=== PATIENT | female | born 1965 | race Caucasian/White ===

== ENCOUNTER → 2023-12-16 09:47 | Outpatient (REF) | payer BC, SELFPAY ==
[2023-12-16 12:19] LABS: % Immature Granulocytes 0.5 % (0-0.5); % Lymphocytes 22.7 % (20.5-51.1); % Monocytes 7.7 % (1.7-9.3); % Neutrophils 67.1 % (42.2-75.2); Absolute Lymphocytes 0.9 10^3/uL (1.2-3.4); Absolute Monocytes 0.3 10^3/uL (0.1-0.6); Absolute Neutrophils 2.8 10^3/uL (1.4-6.5); Hematocrit 41.7 % (37.0-47.0); Hemoglobin 14.4 g/dL (12.0-16.0); Mean Corp Hgb Conc. 34.5 g/dL (33.0-37.0); Mean Corpuscular Hgb 33.1 pg (27.0-31.0); Mean Corpuscular Volume 95.9 fL (81.0-99.0); Mean Platelet Volume 10.1 fL (7.4-10.4); Nucleated Red Blood Cells % 0 %; Platelet Count 243 10^3/uL (130-400); Red Blood Cell Count 4.35 10^6/uL (4.20-5.40); Red Cell Dist. Width 14.3 % (11.5-14.5); White Blood Cell Count 4.2 10^3/uL (4.8-10.8)
[2023-12-16 12:34] LABS: Erythrocyte Sed Rate 10 mm/hour (0-20)
[2023-12-16 13:28] LABS: Vitamin D, 25-OH*** 26.2 ng/mL (30-80)
[2023-12-16 13:33] LABS: ALT (SGPT) 23 U/L (0-35); AST (SGOT) 30 U/L (14-36); Albumin 4.5 g/dl (3.5-5.0); Alkaline Phosphatase 77 U/L (38-126); Blood Urea Nitrogen 4 mg/dl (7-17); Calcium 9.7 mg/dl (8.4-10.2); Carbon Dioxide 22 mmol/L (22-30); Chloride 106 mmol/L (98-107); Glucose 119 mg/dl (70-99); HDL Cholesterol 107 mg/dl; LDL Cholesterol, Calculated 86 mg/dl; Sodium 141 mmol/L (135-145); Total Bilirubin 0.5 mg/dl (0.2-1.3); Total Cholesterol 209 mg/dl (50-199); Triglyceride 81 mg/dl (10-149); Very Low Density Lipoprotein 16 mg/dl (0-30); eGFR > 60.00
[2023-12-16 13:42] LABS: TSH 1.63 uIU/ml (0.47-4.68)
[2023-12-16 14:35] LABS: IgA 244 mg/dl (70-400)
[2023-12-16 15:48] LABS: Vitamin B12 241 pg/ml (239-931)
[2023-12-18 15:46] LABS: tTG IgA Antibody 9.8 EU/ml (0-19); tTG IgG Antibody 10.1 EU/ml (0-19)
[2023-12-18 18:49] LABS: Endomysial IgA Antibody Titer <1:10 (<1:10)
== END ==
LOC: HWLAB 09:47
PROVIDERS: ATTENDING PHYSICIAN Internal Medicine
DX: R19.7 Diarrhea, unspecified (principal); E78.00 Pure hypercholesterolemia, unspecified; E03.9 Hypothyroidism, unspecified; E55.9 Vitamin D deficiency, unspecified; E53.8 Deficiency of other specified B group vitamins
CPT/HCPCS: 36415; 80053; 80061; 82306; 82607; 82784; 83516; 84443; 85025; 85652; 86231

== ENCOUNTER 2024-11-05 10:50 | Emergency (ER) | payer BC, SELFPAY ==
[2024-11-05 10:58] VITALS: BP 115/77
--- NOTE | 2024-11-05 12:14 | ED.GENMED ---
History of Present Illness
General
Chief Complaint: Fall
Time Seen by Provider: 11/05/24 11:40
History of Present Illness
History of Present Illness:
59-year-old female presents to the emergency department for evaluation of right shoulder injury, she lost her balance and fell attempting to brace her fall with the right arm. She denies head strike. Having intense pain and spasms to the right
shoulder. Denies distal paresthesias. Does not take anticoagulants.
Past History
Past History
ED Past Medical History: None
ED Past Surgical History: None
Social History
Tobacco: Smoker
Review of Systems
Review of Systems
Allergies reviewed?: Yes
All Other Systems: ROS reviewed and negative except as documented in HPI and ROS
Phy Exam
Physical Exam
Physical Exam:
GEN: Well appearing, NAD, WDWN
HEENT: Oral mucosa moist, no scleral icterus
Cardiac: Regular rate
Lung: No respiratory distress, no tachypnea
MSK: Significant swelling with no palpable deformity of the right shoulder, axillary neuro sensation intact, right hand range of motion intact, radial pulse is strong on the right
Skin: Good color, no pallor or jaundice, no rashes
Neuro: AO x3, moves all extremities freely
Psych: Calm, cooperative
Course
Orders/Labs/Results
Orders:
Orders
11/05/24 10:59
Shoulder, Right, Trauma [CR Shoulder, Trauma - Right] Urgent
Comment:
Reason For Exam: fall
11/05/24 12:13
HYDROmorphone [Dilaudid] 0.5 mg IM NOW STA
Vital Signs
Initial and Last Documented VS:
Initial Vital Signs
Temp Pulse Resp BP Pulse Ox
97.8 F 74 22 115/77 97
11/05/24 10:58 11/05/24 10:58 11/05/24 10:58 11/05/24 10:58 11/05/24 10:58
Last Documented Vital Signs
Temp Pulse Resp BP Pulse Ox
97.8 F 74 22 115/77 97
11/05/24 10:58 11/05/24 10:58 11/05/24 10:58 11/05/24 10:58 11/05/24 12:14
MDM/Problems Addressed
MDM/Problems Addressed:
Comminuted humeral head fracture identified. Patient request follow-up with Dr. Chambers to [facility]. Will place in shoulder immobilizer and prescribe opiates for pain
*Pulse Oximetry
SaO2: 97
Oxygen Mode of Delivery: Room air
Patient hypoxic: no
*Critical Care Note
Total Time (30-74mins, 75-104mins- exclusive of procedures): Not Applicable
ED Attending Note
-
Portions of this chart may have been created with voice recognition software.� Occasional wrong word or��sound alike� substitutions may have occurred due to the inherent limitations of voice recognition software.
Discharge Plan
Departure
Patient Disposition: Home (Routine Discharge)
Date of Disposition: 11/05/24
Time of Disposition: 12:40
Patient with high blood pressure during this ER visit?: No
Discharge Problem:
Fracture of head of right humerus
Instructions: Upper Arm Fracture ED
Prescriptions:
New
oxycodone 5 mg tablet
5 mg PO Q8H PRN (Reason: Pain) Qty: 10 0RF
cyclobenzaprine 10 mg tablet
10 mg PO TID PRN (Reason: muscle spasm) Qty: 10 0RF
No Action
multivitamin Tablet
1 tab PO DAILY
varenicline tartrate [Chantix] 1 mg Tablet
1 mg PO BID
Fish Oil 1,600-500-800 mg/5 mL Liquid
5 ml PO DAILY
oxycodone 5 mg Tablet
5 mg PO Q4H PRN (Reason: pain)
Referrals:
Bong Chambers MD [Active, Orthopedics]
Interventions
Interventions:
*Risk Screen - Suicide Last Done: 11/05/24 10:58
*General Assessment Last Done: 11/05/24 10:58
*Neglect/Abuse Screening Last Done: 11/05/24 10:58
*ED- Fall Risk Assessment Last Done: 11/05/24 12:20
*ED COVID-19 Vaccine History Last Done: 11/05/24 12:20
*Nursing Disposition Last Done: 11/05/24 13:09
ED-Musculoskeletal Assessment Last Done: 11/05/24 12:35
ED- Neurological Assessment Last Done: 11/05/24 12:35
ED-Skin Assessment Last Done: 11/05/24 12:35
Discharge Date and Time
Discharge Date/Time: 11/05/24 13:09
Print Language: CZECH
[2024-11-05] MEDS: DILAUDID 0.5 MG IM (12:18)
[2024-11-05 12:20] VITALS: BMI 18.6
== END 2024-11-05 13:09 | disposition home or self-care (01) ==
LOC: EMR 10:50
PROVIDERS: EMERGENCY PHYSICIAN Emergency Medicine; FAMILY PHYSICIAN Internal Medicine
DX: S42.291A Other displaced fracture of upper end of right humerus, initial encounter for closed fracture (principal); W19.XXXA Unspecified fall, initial encounter; F17.200 Nicotine dependence, unspecified, uncomplicated
CPT/HCPCS: 99283; 29105; 73030

== ENCOUNTER → 2024-11-11 08:42 | Outpatient (REF) | payer BC, SELFPAY | LOC: HWRAD 08:42 | PROVIDERS: ATTENDING PHYSICIAN Orthopaedic Surgery Hand Surgery; FAMILY PHYSICIAN Internal Medicine | DX: S42.291A Other displaced fracture of upper end of right humerus, initial encounter for closed fracture (principal) | CPT/HCPCS: 73200 ==

== ENCOUNTER 2024-11-20 06:08 | Day surgery (SDC) | payer BC, SELFPAY ==
[2024-11-17 13:53] VITALS: BMI 19.7
[2024-11-17 14:20] LABS: Hematocrit 34.3 % (37.0-47.0); Hemoglobin 11.4 g/dL (12.0-16.0); Mean Corp Hgb Conc. 33.2 g/dL (33.0-37.0); Mean Corpuscular Volume 97.2 fL (81.0-99.0); Platelet Count 312 10^3/uL (130-400); Red Cell Dist. Width 13.3 % (11.5-14.5)
[2024-11-17 14:35] LABS: ALT (SGPT) 18 U/L (0-35); AST (SGOT) 19 U/L (14-36); Albumin 4.2 g/dl (3.5-5.0); Alkaline Phosphatase 58 U/L (38-126); Blood Urea Nitrogen 6 mg/dl (7-17); Calcium 9.3 mg/dl (8.4-10.2); Carbon Dioxide 27 mmol/L (22-30); Chloride 107 mmol/L (98-107); Estimated Creatinine Clearance 84 ml/min; Glucose 95 mg/dl (70-99); Potassium 4.0 mmol/L (3.5-5.1); Sodium 138 mmol/L (135-145); Total Protein 6.7 g/dl (6.3-8.2); eGFR > 60.00
[2024-11-17 15:32] VITALS: BMI 19.7
[2024-11-18 06:41] LABS: Glycohemoglobin (HgbA1c) 5.1 % (4.0-5.6)
[2024-11-20] VITALS (7 sets, daily range): BP systolic 91–111; BP diastolic 67–76; BMI 19.7
[2024-11-20] MEDS: CELEBREX 200 MG PO (13:10)
[2024-11-20] MEDS: NORMOSOL-R/PLASMALYTE-A 1000 IV (13:10)
--- NOTE | 2024-11-20 13:11 | W.DS.TRANS ---
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
-
Discharge Instructions:
Sleep Apnea Risk Low
Discharge Diagnosis/Procedures R Reverse TSA Dr Chambers 11/20/24
Diet As tolerated
Activity No strenuous activity
Driving Restrictions No driving
Instructions:
Stand-Alone Forms: SDS Total Shoulder D/C Inst.
Changes to Home Medications: Yes
Discharge Medications:
DC Medications w/original date entered in [facility]
multivitamin 1 tab PO DAILY 04/06/22
Held on 11/20/24. Instructions: Resume on 11/28/24.
omega 3-dce-bpz-fish oil 1,600 mg-500 mg-800 mg/5 mL oral liquid (Fish Oil) 5 ml PO DAILY 04/06/22
Held on 11/20/24. Instructions: Resume on 11/28/24.
bupropion HCl 100 mg tablet 150 mg PO DAILY 11/17/24
cholecalciferol (vitamin D3) 50 mcg (2,000 unit) tablet (Vitamin D3) 50 mcg PO DAILY 11/17/24
nicotine 14 mg/24 hr daily transdermal patch 1 patch transdermal Q24H 11/17/24
Saccharomyces boulardii 250 mg capsule (Florastor) 250 mg PO BID #1 cap 11/20/24
Tylenol Extra Strength 1,000 mg PO QID ##0 11/20/24
aspirin 325 mg tablet 325 mg PO DAILY blood clot prevention #1 tab 11/20/24
celecoxib 200 mg capsule 200 mg PO DAILY Anti-inflammatory #14 caps 11/20/24
dexamethasone 4 mg tablet 4 mg PO BID inflammation #6 tabs 11/20/24
docusate sodium 100 mg capsule (Colace) 100 mg PO BID stool softner #1 cap 11/20/24
doxycycline hyclate 100 mg capsule 100 mg PO BID infection prevention #10 caps 11/20/24
famotidine 20 mg tablet 20 mg PO HS GI prophylaxis #30 tabs 11/20/24
gabapentin 300 mg capsule 300 mg PO HS sleep/pain #10 caps 11/20/24
hydrocodone 5 mg-acetaminophen 325 mg tablet 1 tab PO Q6H moderate-severe pain #0 tabs 11/20/24
magnesium hydroxide 400 mg/5 mL oral suspension (Milk of Magnesia) 30 ml PO HS PRN constipation #1 mL 11/20/24
ondansetron 4 mg disintegrating tablet 4 mg PO Q6H PRN n/v #20 tabs 11/20/24
sennosides 8.6 mg tablet (Senokot) 17.2 mg (2 x 8.6 mg) PO BID laxative #2 tabs 11/20/24
Home Medication Changes
Saccharomyces boulardii 250 mg capsule (Florastor) 250 mg PO BID #1 cap 11/20/24
Tylenol Extra Strength 1,000 mg PO QID ##0 11/20/24
aspirin 325 mg tablet 325 mg PO DAILY blood clot prevention #1 tab 11/20/24
celecoxib 200 mg capsule 200 mg PO DAILY Anti-inflammatory #14 caps 11/20/24
dexamethasone 4 mg tablet 4 mg PO BID inflammation #6 tabs 11/20/24
docusate sodium 100 mg capsule (Colace) 100 mg PO BID stool softner #1 cap 11/20/24
doxycycline hyclate 100 mg capsule 100 mg PO BID infection prevention #10 caps 11/20/24
famotidine 20 mg tablet 20 mg PO HS GI prophylaxis #30 tabs 11/20/24
gabapentin 300 mg capsule 300 mg PO HS sleep/pain #10 caps 11/20/24
hydrocodone 5 mg-acetaminophen 325 mg tablet 1 tab PO Q6H moderate-severe pain #0 tabs 11/20/24
magnesium hydroxide 400 mg/5 mL oral suspension (Milk of Magnesia) 30 ml PO HS PRN constipation #1 mL 11/20/24
ondansetron 4 mg disintegrating tablet 4 mg PO Q6H PRN n/v #20 tabs 11/20/24
sennosides 8.6 mg tablet (Senokot) 17.2 mg (2 x 8.6 mg) PO BID laxative #2 tabs 11/20/24
Pending Results: No
[2024-11-20] MEDS: ANCEF 5 IV (17:49)
== END 2024-11-20 18:00 | disposition home or self-care (01) ==
LOC: SDS 06:08
PROVIDERS: ATTENDING PHYSICIAN Orthopaedic Surgery Hand Surgery; FAMILY PHYSICIAN Internal Medicine
DX: S42.291A Other displaced fracture of upper end of right humerus, initial encounter for closed fracture (principal); W19.XXXA Unspecified fall, initial encounter
CPT/HCPCS: 23472; C1776; 36415; 73020; 80053; 83036; 85027; 86850; 86900; 86901; 87070; 93005

== ENCOUNTER 2024-12-28 12:10 | Outpatient (RCR) | payer BC, SELFPAY | END 2024-12-28 23:59 | disposition home or self-care (01) | LOC: RPT 12:10 | PROVIDERS: ATTENDING PHYSICIAN Orthopaedic Surgery Orthopaedic Trauma; FAMILY PHYSICIAN Internal Medicine | DX: Z47.1 Aftercare following joint replacement surgery (principal); S42.291D Other displaced fracture of upper end of right humerus, subsequent encounter for fracture with routine healing; Z73.6 Limitation of activities due to disability; M62.81 Muscle weakness (generalized); W18.09XD Striking against other object with subsequent fall, subsequent encounter; Z96.611 Presence of right artificial shoulder joint | CPT/HCPCS: 97110; 97162 ==

== ENCOUNTER 2025-01-27 08:05 | Outpatient (RCR) | payer BC, SELFPAY | END 2025-01-27 23:59 | disposition home or self-care (01) | LOC: RPT 08:05 | PROVIDERS: ATTENDING PHYSICIAN Orthopaedic Surgery Orthopaedic Trauma; FAMILY PHYSICIAN Internal Medicine | DX: Z47.1 Aftercare following joint replacement surgery (principal); S42.291D Other displaced fracture of upper end of right humerus, subsequent encounter for fracture with routine healing; Z73.6 Limitation of activities due to disability; M62.81 Muscle weakness (generalized); W18.09XD Striking against other object with subsequent fall, subsequent encounter; Z96.611 Presence of right artificial shoulder joint | CPT/HCPCS: 97010; 97110; 97112; 97140; 97530 ==

== ENCOUNTER 2025-02-22 09:28 | Outpatient (RCR) | payer BC, SELFPAY | END 2025-02-22 23:59 | disposition home or self-care (01) | LOC: RPT 09:28 | PROVIDERS: ATTENDING PHYSICIAN Orthopaedic Surgery Orthopaedic Trauma; FAMILY PHYSICIAN Internal Medicine | DX: Z47.1 Aftercare following joint replacement surgery (principal); S42.291D Other displaced fracture of upper end of right humerus, subsequent encounter for fracture with routine healing; Z73.6 Limitation of activities due to disability; X58.XXXD Exposure to other specified factors, subsequent encounter; M62.81 Muscle weakness (generalized); W18.09XD Striking against other object with subsequent fall, subsequent encounter; Z96.611 Presence of right artificial shoulder joint | CPT/HCPCS: 97010; 97110; 97112; 97140 ==

== ENCOUNTER 2025-03-30 09:25 | Outpatient (RCR) | payer BC, SELFPAY | END 2025-03-30 23:59 | disposition home or self-care (01) | LOC: RPT 09:25 | PROVIDERS: ATTENDING PHYSICIAN Orthopaedic Surgery Orthopaedic Trauma; FAMILY PHYSICIAN Internal Medicine | DX: Z47.1 Aftercare following joint replacement surgery (principal); S42.291D Other displaced fracture of upper end of right humerus, subsequent encounter for fracture with routine healing; Z73.6 Limitation of activities due to disability; X58.XXXD Exposure to other specified factors, subsequent encounter; M62.81 Muscle weakness (generalized); W18.09XD Striking against other object with subsequent fall, subsequent encounter; Z96.611 Presence of right artificial shoulder joint | CPT/HCPCS: 97010; 97110; 97112; 97140 ==